=== PATIENT | female | born 1985 | race Caucasian/White ===

== ENCOUNTER 2018-07-29 10:29 | Emergency (ER) | payer OTHER ==
[~2018-07-29] VITALS: Ht 162.6 cm; Wt 65.8 kg
[2018-07-29 12:53] LABS: ABSOLUTE NEUTROPHILS 10.8 thou/uL (1.4-8.2); BASOPHILS 0.2 % (0.0-2.0); EOSINOPHILS 0.7 % (0.0-3.0); HEMATOCRIT 34.7 % (37.0-47.0); HEMOGLOBIN 11.7 gm/dL (12.0-15.0); LYMPHOCYTES 14.9 % (24.0-44.0); MCH 31.3 pg (26.0-34.0); MCHC 33.7 g/dL (28.0-37.0); MCV 92.9 fL (80.0-100.0); MONOCYTES 7.7 % (1.0-8.0); PLATELET COUNT 195 thou/uL (150-400); POLYS 76.5 % (36.0-66.0); RBC 3.74 mil/uL (4.20-5.00); RDW 12.9 % (10.5-14.5); WBC 14.1 thou/uL (4.0-11.0)
[2018-07-29 12:58] LABS: CALCIUM 9.1 mg/dL (8.5-10.1); CREATININE 0.8 mg/dL (0.6-1.0); POTASSIUM 4.2 mmol/L (3.5-5.1)
[2018-07-29] MEDS ORDERED: IBUPROFEN 800800 M1 PO (13:05)
[2018-07-29] MEDS ORDERED: BACTRIM DS TAB1 EACH PO (13:05)
[2018-07-29 13:16] VITALS: BP 113/61
== END 2018-07-29 13:21 | disposition home or self-care (01) ==
LOC: ER 10:29
PROVIDERS: Nurse Practitioner Family
DX: T80.818A Extravasation of other vesicant agent, initial encounter (principal); L03.114 Cellulitis of left upper limb; F15.10 Other stimulant abuse, uncomplicated; X58.XXXA Exposure to other specified factors, initial encounter